=== PATIENT | female | born 2000 | race Caucasian/White ===

== ENCOUNTER → 2024-05-09 10:01 | Outpatient (REF) | payer BC, SELFPAY | LOC: HWRAD 10:01 | PROVIDERS: ATTENDING PHYSICIAN Otolaryngology; FAMILY PHYSICIAN Family Medicine | DX: J34.2 Deviated nasal septum (principal); J33.0 Polyp of nasal cavity | CPT/HCPCS: 70486 ==

== ENCOUNTER 2024-09-11 06:00 | Day surgery (SDC) | payer BC, SELFPAY ==
[2024-09-11] VITALS (11 sets, daily range): BP systolic 98–123; BP diastolic 64–108; BMI 17.4
[2024-09-11] MEDS: NORMOSOL-R/PLASMALYTE-A 1000 IV (06:32)
== END 2024-09-11 09:40 | disposition home or self-care (01) ==
LOC: SDS 06:00
PROVIDERS: ATTENDING PHYSICIAN Otolaryngology
DX: J34.2 Deviated nasal septum (principal)
CPT/HCPCS: 30520